=== PATIENT | male | born 1985 | race Caucasian/White ===

== ENCOUNTER 2016-11-26 23:18 | Emergency (ER) | payer BC ==
[~2016-11-26 23:18] MED LIST: ALBUTEROL17 G1 IH; MAGIC MOUTHWASH PO; ZITHROMAX PO
== END 2016-11-26 23:39 | disposition home or self-care (01) ==
LOC: CFTX 23:18
DX: J45.901 Unspecified asthma with (acute) exacerbation (principal); Z98.52 Vasectomy status; Z98.890 Other specified postprocedural states; Z79.899 Other long term (current) drug therapy; Z88.1 Allergy status to other antibiotic agents
CPT/HCPCS: 71010; 99282; 99283